=== PATIENT | male | born 1945 ===

== ENCOUNTER 2021-08-16 03:53 | Inpatient (IN) ==
--- NOTE | 2021-08-16 04:30 | Emergency Department Note ---
Abdominal Pain HPI General Chief Complaint: Abdominal Pain Stated Complaint: abdominal pain Time Seen by Provider: 08/16/21 04:03 Source: EMS Mode of arrival: EMS Limitations: no limitations History of Present Illness HPI Narrative: Narrative: 76 yo M w/ h/o Alzheimers, DM, HLD, inguinal hernia, is transferred here for surgical intervention for an incarcerated R inguinal hernia. Pt has had this hernia for some time now and it has been slowly enlarging. However yesterday, he was driving back home from a urologist appt when his pain became severe. He has not had a BM in 2-3 days, but continues to pass flatus. He has not had any N/V. Due to the pain, he presented to [facility]. He underwent evaluation there w/ labs and imaging. CBC and CMP were unremarkable. A CT abd/pelvis w/ contrast showed an incarcerated R inguinal hernia w/ assoc'd SBO. The ED physician in [place] then d/w Dr Shah, general surgeon here, who accepted pt for T/F. I agreed, and pt has now arrived. He confirmed the Hx as documented by Dr Power in [place]. Related Data Home Medications Medication Instructions Recorded Confirmed [id number]-[id number] 1 - 2 tab PO DAILY 08/16/21 08/16/21 [Excedrin Extra Strength] atorvastatin 10 mg PO QHS 08/16/21 08/16/21 cetirizine 10 mg PO QDAY PRN 08/16/21 08/16/21 donepezil 10 mg PO QHS 08/16/21 08/16/21 memantine 10 mg PO BID 08/16/21 08/16/21 metformin 500 mg PO DAILY 08/16/21 08/16/21 modafinil 100 mg PO QAM 08/16/21 08/16/21 tamsulosin 0.8 mg PO DAILY 08/16/21 08/16/21 Allergies Allergy/AdvReac Type Severity Reaction Status Date / Time No Known Drug Allergies Allergy Unverified 08/16/21 03:53 Review of Systems ROS ROS Narrative: Narrative: All systems ED: reviewed and negative except as stated. (however the ROS was somewhat limited by pts mild Alzheimers) [facility] Narrative Patient History Narrative: Narrative: DM, HLD, R inguinal hernia Medical/Surgical/Family History All Active Problems (Updated 08/16/21 @ 04:30 by Boris Gomez MD) Abdominal pain (Acute) Hernia, inguinal, right (Acute) Bowel obstruction (Acute) Social History Smoking Status: Never smoker Exam Narrative Narrative: Narrative: General Limitations: no limitations General appearance: Present alert and in no apparent distress Head Head: Present atraumatic and normocephalic ENT ENT: Present normal oropharynx and mucous membranes moist Chest Chest: Present normal inspection and symmetric chest wall rise Respiratory Respiratory: Present normal lung sounds bilaterally; Absent respiratory distress, rales/crackles, wheezes and stridor Cardiovascular Cardiovascular: Present regular rate, normal rhythm, +S1, +S2 and other (2+ B/L radial pulses) Adbominal Abdominal: Present soft, tenderness (diffuse, but most prominent in RLQ), guarding (voluntary), diminished bowel sounds and other (10x5cm R inguinal hernia present, no overlying skin necrosis, very TTP not able to reduce the hernia.); Absent distention, rebound and rigidity Extremities Extremities: Absent pedal edema Neurological Neurological: Present alert Psychiatric Psychiatric: Present normal affect Skin Skin: Present warm (WNL) and dry Course Vital Signs Vital signs: Vital Signs Temperature 97.4 F 08/16/21 03:53 Pulse Rate 56 L 08/16/21 03:53 Respiratory Rate 18 08/16/21 03:53 Blood Pressure 149/94 08/16/21 03:53 Pulse Oximetry (%) 100 08/16/21 03:53 Temperature 98 F 08/16/21 04:46 Pulse Rate 60 08/16/21 04:46 Respiratory Rate 16 08/16/21 04:46 Blood Pressure 172/81 08/16/21 04:46 Pulse Oximetry (%) 99 08/16/21 04:46 [facility] MDM Narrative Medical decision making narrative: Narrative: 76 yo M w/ h/o DM, dementia, p/w an incarcerated R inguinal hernia. DDx - hernia, SBO, bowel ischemia, metabolic/electrolyte d/o, dehydration Pt presented clinically stable, in NAD. His Hx, PE, and imaging were c/w incarcerated R inguinal hernia complicated by SBO. Labs were unremarkable and thus far bowel ischemia seems unlikely. No serious metabolic/electrolyte d/o was noted on lab results from the sending hospital and no leukocytosis was present either. Overall pt is stable for floor admission under Dr Shah. Discharge Plan Patient/Caregiver Discharge Instructions Pt seen by DEAN OF INSTRUCTION/PA only: No Clinical Impression: Abdominal pain, Hernia, inguinal, right, Bowel obstruction Patient Disposition: Xfer As Inpt ([facility]) Condition: Fair Discharge Date/Time: 08/16/21 04:55
[2021-08-16] MEDS ORDERED: ONDANSETRON 4 MG/2 ML VIAL IV PRN ×3 (04:35→16:05)
[2021-08-16] MEDS: 0.9 % SODIUM CHLORIDE 1,000 ML IV SCH ×4 (05:26→21:12)
[2021-08-16] MEDS: morphine 2 MG/ML VIAL IV PRN ×2 (05:32→09:59)
[2021-08-16] MEDS ORDERED: IPRATROPIUM/ALBUTEROL 3 ML AMPUL.NEB NEB PRN ×2 (08:42→13:48)
[2021-08-16 10:15] LABS: Prothrombin Time 14.1 sec (11.9-14.5)
--- NOTE | 2021-08-16 11:05 | General Surg History&Physical ---
HPI History of Present Illness Patient information: Note initiated : 08/16/21 at 10:53 am Service Date, if different from initiated Date: [] Patient: Trent Krishnan 76 y/o M admitted on 08/16/21 for abdominal pain. Chief Complaint: [] History of present illness: Mr. Krishnan is a 76 year old M admitted for urgent treatment of incarcerated right inguinal hernia with small bowel obstruction. From available history the patient has had the hernia for quite some time. He has been having pain over the past 3 to 4 days. He did not have the ability to have flatus or bowel movement. He denies nausea or vomiting. He was seen at the [facility] and [facility]. Evaluation revealed an incarcerated right inguinal hernia. CT was done and this confirmed small bowel obstruction. They did not have any surgical service so he was transferred here for evaluation and treatment. Patient has been stable since his arrival earlier this morning. He is counseled for right inguinal hernia repair. This should suffice to relieve his small bowel obstruction. Review of Systems ROS unobtainable: due to mental status (Patient has definite degenerative dementia; type undefined) PFSH PFSH All Active Problems (Updated 08/16/21 @ 11:04 by Carl Shah MD) Chronic dementia (Acute) Abdominal pain (Acute) Hernia, inguinal, right (Acute) Bowel obstruction (Acute) Medical History (Updated 08/16/21 @ 11:04 by Carl Shah MD) Closed fracture of left knee region Closed left ankle fracture Dementia History of prostate cancer Surgical History (Updated 08/16/21 @ 10:59 by Carl Shah MD) H/O radical prostatectomy Family History Father , age 75 due to advanced Parkinson's disease No problems noted. Mother , age 73 due to cerebral aneurysm No problems noted. MEDS/ALLERGIES Home Medications and Allergies Home Medications Medication Instructions Recorded Confirmed Type [id number]-juzxwpsynxlqs-cmlizeoq 1 - 2 tab PO DAILY 08/16/21 08/16/21 History [Excedrin Extra Strength] atorvastatin 10 mg PO QHS 08/16/21 08/16/21 History cetirizine 10 mg PO QDAY PRN 08/16/21 08/16/21 History donepezil 10 mg PO QHS 08/16/21 08/16/21 History memantine 10 mg PO BID 08/16/21 08/16/21 History metformin 500 mg PO DAILY 08/16/21 08/16/21 History modafinil 100 mg PO QAM 08/16/21 08/16/21 History tamsulosin 0.8 mg PO DAILY 08/16/21 08/16/21 History Allergies Allergy/AdvReac Type Severity Reaction Status Date / Time No Known Drug Allergies Allergy Unverified 08/16/21 03:53 Physical Examination Vital Signs Vital signs: Temp Pulse Resp BP Pulse Ox 98.6 F 63 18 161/87 97 08/16/21 08:00 08/16/21 08:00 08/16/21 08:00 08/16/21 08:00 08/16/21 08:00 General physical appearance General physical exam: well developed, well nourished, no distress, moderate pain, cachectic and chronically ill Eyes Eye exam: PERRL and normal ocular movement ENT ENT exam: normal pinna, normal nares, normal mucosa, no hearing loss and no congestion Head Head exam IM: Present atraumatic, normal inspection and normocephalic Neck Neck exam: no masses, no bruits, trachea midline, no lymphadenopathy and no venous distension Cardiovascular Cardiovascular exam IM: Present normal rate and rhythm, +S1, +S2 and systolic murmur (Grade 2 systolic murmur) Respiratory Respiratory exam: normal expansion, normal respiratory effort and clear to auscultation Abdomen Abdomen: Present soft and tender (Tenderness right lower quadrant with palpable hernia) Hernia: Present inguinal (Incarcerated right inguinal hernia) Integumentary Integumentary: Present no rash, no growths and no abnormal pigmentation Neurologic Neurologic: Present normal coordination, normal sensation, confused and memory loss Musculoskeletal Musculoskeletal: Present normal gait and normal posture Psychiatric Psychiatric: Present other (Patient's memory is very deficient. He has pressured speech which is totally unintelligible.) Results Labs Labs: All other labs normal. A/P Assessment and plan (1) Hernia, inguinal, right: Status: Acute (2) Bowel obstruction: Status: Acute (3) Chronic dementia: Status: Acute Narrative A/P Narrative: Patient is counseled for right inguinal hernia repair. This will be completed later this morning. He will be observed until tomorrow to make sure that he does not have residual intestinal obstruction. Time Spent With Patient Time: Total time spent is greater than 50% in coordination of care (as documented) at patient's floor/unit and/or counseling patient:
[2021-08-16 11:31] LABS: POC Creatinine 0.6 mg/dL (0.6-1.2)
[2021-08-16] MEDS ORDERED: CEFEPIME 2 GM VIAL IV SCH (12:00)
[2021-08-16] MEDS ORDERED: MAGNESIUM SULFATE 2 GM/50 ML BAG IV ONE (12:51)
[2021-08-16] MEDS ORDERED: ePHEDrine 50 MG/5 ML SYRINGE (ANEST) IV ONE (12:51)
[2021-08-16] MEDS ORDERED: ROPIVACAINE HCL/PF 30 ML VIAL IJ ONE (12:51)
[2021-08-16] MEDS ORDERED: LIDOCAINE HCL/PF 100 MG/5 ML SYRINGE IV ONE (12:51)
[2021-08-16] MEDS ORDERED: ONDANSETRON 4 MG/2 ML VIAL ONE (12:51)
[2021-08-16] MEDS ORDERED: GLYCOPYRROLATE 0.2 MG/ML VIAL IV ONE (12:51)
[2021-08-16] MEDS ORDERED: KETAMINE 50 MG/ML Syringe (ANEST) IV ONE (12:51)
[2021-08-16] MEDS ORDERED: PROPOFOL 200 MG/20 ML VIAL IV ONE (12:51)
[2021-08-16] MEDS ORDERED: PHENYLephrine 1 MG/10 ML SYRINGE (ANEST) ONE (12:51)
[2021-08-16] MEDS ORDERED: GENTAMICIN SULFATE 800 MG/20 ML VIAL IR ONE (13:15)
[2021-08-16] MEDS ORDERED: VANCOMYCIN 1,000 MG in 0.9 % SODIUM CHLORIDE 250 ML IV SCH (13:30)
[2021-08-16] MEDS ORDERED: VANCOMYCIN 1 GM VIAL IP SCH (13:30)
[2021-08-16] MEDS ORDERED: VANCOMYCIN 1 GM VIAL TOPICAL SCH (13:45)
[2021-08-16] MEDS ORDERED: VANCOMYCIN 1 GM VIAL TOPICAL ONE (13:45)
[2021-08-16] MEDS ORDERED: diphenhydrAMINE 50 MG/ML VIAL IV PRN (13:48)
[2021-08-16] MEDS ORDERED: MEPERIDINE 25 MG/ML VIAL IV PRN (13:48)
[2021-08-16] MEDS ORDERED: PROMETHAZINE 25 MG/ML VIAL IV PRN (13:48)
[2021-08-16] MEDS ORDERED: fentaNYL 100 MCG/2 ML VIAL IV PRN (13:48)
[2021-08-16] MEDS ORDERED: ACETAMINOPHEN 1,000 MG/100 ML BAG IV ONE (13:48)
[2021-08-16] MEDS ORDERED: NALOXONE HCL 0.4 MG/ML VIAL IV PRN (13:48)
[2021-08-16] MEDS ORDERED: LACTATED RINGERS 250 ML IV PRN (13:48)
[2021-08-16] MEDS ORDERED: LACTATED RINGERS 1,000 ML IV SCH (14:00)
--- NOTE | 2021-08-16 14:48 | Brief Operative Note ---
Brief Operative Note Date of procedure: 08/16/21 Pre-op diagnosis: incarcerated right inguinal hernia with small bowel obstruct ion Post-op diagnosis: other (INCARCERATED RIGHT INGUINAL HERNIA WITH SMALL BOWEL OBSTRUCTION) Procedure: RIGHT INGUINAL HERNIA REPAIR Grafts/Implants: Yes (SURGIMESH) Anesthesia: GETA Findings: THICK ,LARGE HERNIA SAC WITH INDURATED BOWEL LOOP Complications: none Surgeon: Carl Shah Estimated blood loss (cc): 20 Specimens Removed/Pathology: none sent Condition: stable Disposition: PACU
[2021-08-16] MEDS ORDERED: morphine 2 MG/ML VIAL IV PRN (16:05)
[2021-08-16] MEDS ORDERED: DONEPEZIL 10 MG TABLET PO SCH (21:00)
[2021-08-16] MEDS: MEMANTINE 10 MG TABLET PO SCH (21:13)
[2021-08-16] MEDS: CEFEPIME 2 GM VIAL IV SCH (21:13)
[2021-08-17] MEDS: 0.9 % SODIUM CHLORIDE 1,000 ML IV SCH ×2 (05:21→09:00)
[2021-08-17] MEDS ORDERED: metFORMIN 500 MG TAB.XL.24H PO SCH (08:00)
[2021-08-17] MEDS: CEFEPIME 2 GM VIAL IV SCH (08:35)
[2021-08-17] MEDS: MEMANTINE 10 MG TABLET PO SCH (08:36)
[2021-08-17] MEDS ORDERED: TAMSULOSIN 0.4 MG CAPSULE PO SCH (09:00)
--- NOTE | 2021-08-17 12:01 | Discharge Summary ---
Discharge Provider Provider Patient information: Note initiated : 08/17/21 at 11:55 am Service Date, if different from initiated Date: [] Patient: Trent Krishnan 76 y/o M admitted on 08/16/21 for abdominal pain. Chief Complaint: [] Date of admission: 08/16/21 04:46 Discharge date: 08/17/21 Primary care physician: Eduardo Jorge Admitting clinician: Carl Shah Attending physician on admission: Carl Shah Consults: 08/16/21 Consult to Physician [CONS] Stat Comment: Consulting Provider: Carl Shah Reason For Exam: Physician to Consult Attending physician on discharge: Carl Shah Discharging clinician: Carl Shah COURSE Hospital Course Hospital course: 76-year-old male who presented on the day of admission with history of chronic inguinal hernia with acute onset of right inguinal swelling. He was seen at hospital in [facility] and was noted to have an incarcerated right inguinal hernia with small bowel obstruction he was transferred here in the dermatologist managing partner of 16 August 2021. He underwent right inguinal hernia repair with release of small bowel obstruction on yesterday. He is doing well without complaints except for mild incisional discomfort. He is tolerating diet and is passing flatus. He does not have any abdominal distention. He is stable for discharge home Discharge diagnosis: Incarcerated right inguinal hernia Secondary discharge diagnosis: Small bowel obstruction due to incarcerated hernia Degenerative dementia Reason for admission: Incarcerated right inguinal hernia with intestinal obstruction Procedures: Right inguinal hernia repair on 16 August 2021 Pertinent studies/significant findings: None Complications: None Time Spent with Patient Time attestation: Total time spent providing and/or coordinating discharge services: Physical Examination Vital Signs Vital signs: Temp Pulse Resp BP Pulse Ox 97.2 F 62 18 169/89 97 08/17/21 06:58 08/17/21 06:58 08/17/21 06:58 08/17/21 06:58 08/17/21 06:58 General physical appearance General physical exam: well developed, well nourished, no distress, moderate pain, cachectic and chronically ill Eyes Eye exam: PERRL and normal ocular movement ENT ENT exam: normal pinna, normal nares, normal mucosa, no hearing loss and no congestion Head Head exam IM: Present atraumatic, normal inspection and normocephalic Cardiovascular Cardiovascular exam IM: Present normal rate and rhythm, +S1, +S2 and systolic murmur (Grade 2 systolic murmur) Respiratory Respiratory exam: normal expansion, normal respiratory effort and clear to auscultation Abdomen Abdomen: Present soft, non tender and bowel sounds; Absent distended Hernia: Present none Integumentary Integumentary: Present no rash, no growths and no abnormal pigmentation Neurologic Neurologic: Present normal coordination, normal sensation, disoriented, confused and memory loss Musculoskeletal Musculoskeletal: Present normal gait and normal posture Psychiatric Psychiatric: Present oriented to person; Absent memory intact Discharge Plan Patient/Caregiver Discharge Instructions Activity: increase activity as tolerated Diet: Regular Diet Instructions: Oxycodone/Acetaminophen (By mouth), Open Herniorrhaphy (DC) Activity Restrictions/Additional Instructions: Increase activity as tolerated. No heavy lifting. Resume regular diet as tolerated. May shower. No soaking in tub/pool/jacuzzi. Leave the dressing clean, dry, and in place until seen in the physician's office. If the dressing starts to come off, please call the office and request a dressing change [phone]. To avoid constipation while taking any narcotic medication, take an over the counter stool softener/laxative. Your prescription has been electronically sent to [facility]. Call your physician for sustained fever greater than 100.5, bleeding, increase in pain not relieved by rest/medication or any questions/concerns. This discharge packet is provided to you to help keep you informed about your care. We want to ensure you get everything you need when you go home. You will also be receiving a call from us in a few days to follow up with you and see how you are doing since your discharge. This gives us a chance to listen to any concerns you maybe experiencing since you were discharged or any additional needs you may have, as well as providing us feedback on your care experience. W e strive to always provide excellent care and thank you for your feedback and for choosing [facility]. Prescriptions: New oxycodone-acetaminophen [Endocet] 10-325 mg Tablet 1 tab PO Q4H PRN (Reason: Pain) Qty: 30 RF: 0 Continued atorvastatin 10 mg tablet 10 mg PO QHS RF: 0 donepezil 10 mg tablet 10 mg PO QHS RF: 0 tamsulosin 0.4 mg Capsule 0.8 mg PO DAILY RF: 0 metformin 500 mg tablet extended release 24 hr 500 mg PO DAILY RF: 0 Excedrin Extra Strength 250-250-65 mg Tablet 1 - 2 tab PO DAILY RF: 0 modafinil 100 mg tablet 100 mg PO QAM RF: 0 memantine 5 mg tablet 10 mg PO BID RF: 0 cetirizine 10 mg Capsule 10 mg PO QDAY PRN (Reason: Allergy Symptoms) RF: 0 Follow Up Plan Follow up with: Eduardo Jorge MD [Primary Care Provider] - (as needed.) Carl Shah MD [Physician] - 08/31/21 10:15 am Patient Disposition: Home, Self-Care Prognosis: Good Rehab Potential: Good I certify that the patient requires SNF services: No Overall status at discharge: patient is progressing back to baseline Discharge Orders: Discharge Order (Routine); Ordered 08/17/21 Ordered By: Carl Shah Pending Pending Pending: Diet Regular Diet Start Maru Aug 17 0800 Cefepime HCl (Cefepime 2 Gm Vial) 2 gm IV Q12H COUNT INCLUDES THE [facility]; Protocol Last Admin: 08/17/21 08:35 Dose: 2 gm Documented by: Admin: 08/16/21 21:13 Dose: 2 gm Documented by: MELISSA Donepezil HCl (Donepezil 10 Mg Tablet) 10 mg PO QHS COUNT INCLUDES THE [facility] Last Admin: 08/16/21 21:13 Dose: 10 mg Documented by: MELISSA Sodium Chloride (Sodium Chloride 0.9%) 1,000 mls @ 100 mls/hr IV .Q10H COUNT INCLUDES THE [facility] Last Admin: 08/17/21 09:00 Dose: 100 mls/hr Documented by: Infusion: 08/17/21 07:12 Dose: 100 mls/hr Documented by: Admin: 08/17/21 05:21 Dose: Not Given Documented by: Admin: 08/16/21 21:12 Dose: 100 mls/hr Documented by: Infusion: 08/16/21 21:12 Dose: 100 mls/hr Documented by: Admin: 08/16/21 16:15 Dose: 100 mls/hr Documented by: ALISE Memantine (Memantine 10 Mg Tablet) 10 mg PO BID COUNT INCLUDES THE [facility] Last Admin: 08/17/21 08:36 Dose: 10 mg Documented by: [id number] Admin: 08/16/21 21:13 Dose: 10 mg Documented by: MELISSA Metformin HCl (Metformin 500 Mg Tab.Xl.24h) 500 mg PO [facility] Last Admin: 08/17/21 08:36 Dose: 500 mg Documented by: [id number] Morphine Sulfate (Morphine 2 Mg/Ml Vial) 2 mg IV Q2HP PRN; Protocol PRN Reason: Per Pain Protocol Last Admin: 08/17/21 00:01 Dose: 2 mg Documented by: SOILA Tamsulosin HCl (Tamsulosin 0.4 Mg Capsule) 0.8 mg PO DAILY COUNT INCLUDES THE [facility] Last Admin: 08/17/21 08:36 Dose: 0.8 mg Documented by: [id number] Shift Summary 08/17/21 05:18 Shift Summary by Cirilo Razo Primary Diagnosis: Incarcerated R inguinal hernia, right open hernia repair inguinal 08/16 Registration Status: inpatient Day of Hospitalization: Admitted 08/16/21 @ 0446 Date of Surgery (if applicable): 08/16 Pertinent Medical Hx: Dementia, BPH, prostate CA Vital Signs : VSS on RA Neuro: A&OX1, person only. Bed alarm on. Amb status: Amb w/ SBA. Diet: Regular PRN MEDS: Morphine 2mg IVP @ 0001 Lines/Tubes: NS @ 100/hr into LFA, 20G Lab/Rad results: Void/ BM: urinal, bathroom, clear, yellow. no BM during this shift Recommendations/questions for MD (DC High? DC CM? PICC needed?): Expected date of discharge: TBD Discharge Plan (needs, disposition, etc): to return home w/ when medically cleared. Pt is confused but very polite and pleasant, need reorientation constantly. Initialized on 08/17/21 05:18 - END OF NOTE
--- NOTE | 2021-08-18 14:28 | Operative Note ---
DATE OF OPERATION: 08/16/2021 PREOPERATIVE DIAGNOSES: Incarcerated right inguinal hernia with small-bowel obstruction. POSTOPERATIVE DIAGNOSES: Incarcerated right inguinal hernia with small-bowel obstruction. PROCEDURE: Right inguinal hernia repair. SURGEON: Carl Shah M.D. FINDINGS: Thick, large hernia sac with slightly indurated bowel, but no evidence of vascular compromise. DESCRIPTION OF PROCEDURE: Under general anesthesia, the lower abdomen and genitalia on the right side were prepped and draped in a sterile field. Timeout procedure was carried out as per protocol. A curvilinear incision was made. The incision was extended through the superficial fascia to the aponeurosis. The aponeurosis was opened in the line of its fibers. Cord was mobilized from the floor. There was induration of the cord and a slightly edematous hernia sac. The small bowel loop reduced as I was mobilizing the cord. There was no evidence of compromise of the bowel. A lipoma of the cord was dissected back to the internal ring. It was ligated and excised. Tissue was discarded. Large, thick hernia sac was dissected back to the internal ring. It was ligated at the neck and invaginated. A mesh plug was placed and was sutured circumferentially. Onlay patch was placed and sutured circumferentially with 2-0 Prolene. Irrigation was carried out. The cord was placed in anatomic position and the aponeurosis was closed with 2-0 Vicryl. The superficial fascia was closed in two layers with 2-0 Monocryl. Skin was closed with adelita. Tegaderm dressing was placed. The patient tolerated the procedure well. He was awakened and transferred to the postanesthetic care unit in stable, satisfactory condition. LCS:[id number] Job ID: [id number] Doc ID: [id number] Carl Shah M.D.
--- NOTE | 2021-08-18 19:18 | EKG ---
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
== END 2021-08-17 13:15 | disposition home or self-care (01) | DRG 352 ==
LOC: ED 03:53 → MEDSUR 04:46
PROVIDERS: ADMIT Family Medicine Adult Medicine; ATTEND Family Medicine Adult Medicine